=== PATIENT | female | born 1995 | race Caucasian/White ===

== ENCOUNTER 2018-05-11 10:30 | Emergency (ER) | payer SELFPAY ==
[~2018-05-11] VITALS: Ht 175.3 cm; Wt 75.0 kg
[2018-05-11 11:10] VITALS: BP 130/93
== END 2018-05-11 17:38 | disposition left against medical advice (07) ==
LOC: ER 10:59
DX: S40.861A Insect bite (nonvenomous) of right upper arm, initial encounter (principal); F12.10 Cannabis abuse, uncomplicated; Z53.21 Procedure and treatment not carried out due to patient leaving prior to being seen by health care provider; W57.XXXA Bitten or stung by nonvenomous insect and other nonvenomous arthropods, initial encounter; Y93.89 Activity, other specified; Y92.89 Other specified places as the place of occurrence of the external cause; Y99.8 Other external cause status